=== PATIENT | female | born 1990 | race Caucasian/White ===

== ENCOUNTER 2025-07-14 11:39 | Emergency (ER) | payer BC ==
[2025-07-14] MEDS ORDERED: Nitroglycerin 0.4 MG Tab.SL SL PRN (12:01)
[2025-07-14 12:49] LABS: BASOPHILS ABSOLUTE AUTO 0.03 K/uL (0.00-0.20); BASOPHILS PERCENT AUTO 0.5 % (0.0-2.0); EOSINOPHILS ABSOLUTE AUTO 0.36 K/uL (0.00-0.50); EOSINOPHILS PERCENT AUTO 5.8 % (0.0-5.0); IMMATURE GRAN ABSOLUTE AUTO 0.00 10^3/uL (0.00-0.04); IMMATURE GRAN PERCENT AUTO 0.0 % (0.0-0.4); LYMPHOCYTES ABSOLUTE AUTO 2.02 K/uL (0.50-3.50); LYMPHOCYTES PERCENT AUTO 32.7 % (10.0-50.0); MONOCYTES ABSOLUTE AUTO 0.57 K/uL (0.00-1.00); MONOCYTES PERCENT AUTO 9.2 % (2.0-14.0); NEUTROPHILS ABSOLUTE AUTO 3.20 K/uL (1.40-7.00); NEUTROPHILS PERCENT AUTO 51.8 % (45.0-80.0); PLATELET COUNT,PLT 276 K/uL (150-350); RED BLOOD CELL COUNT 4.34 M/uL (3.77-5.09); RED CELL DISTRIBUTION WIDTH 12.9 % (11.2-14.1); WHITE BLOOD CELL COUNT,WBC 6.2 K/uL (4.0-10.2)
[2025-07-14 13:08] LABS: INR 1.0 (0.9-1.1); PTT,PARTIAL THROMBOPLSTIN TIME 30.1 SEC (23.8-34.4)
[2025-07-14 13:11] LABS: ALANINE AMINOTRANSFERASE,ALT 27 U/L (12-78); ASPARTATE AMNIOTRANSFERASE,AST 18 U/L (15-37); BILIRUBIN TOTAL 0.5 mg/dL (0.2-1.0); BLOOD UREA NITROGEN,BUN 15 mg/dL (7-18); CARBON DIOXIDE,CO2 27.0 mmol/L (21.0-32.0); CHLORIDE,CL 105 mmol/L (98-107); CREATININE 0.95 mg/dL (0.51-1.17); ESTIMATED GFR 81 mL/min (>=60); GLUCOSE RANDOM 83 mg/dL (70-99); POTASSIUM,K 4.2 mmol/L (3.5-5.1); PROTEIN TOTAL,TP 7.1 g/dL (6.4-8.2); SODIUM,NA 141 mmol/L (136-145)
[2025-07-14] MEDS: LORazepam 2 MG/ML SDV IVPUSH ONE (14:12)
[2025-07-14] MEDS: Ondansetron 4 MG/2 ML SDV IVPUSH ONE (14:22)
== END 2025-07-14 16:19 | disposition home or self-care (01) ==
LOC: LL.ED 11:39
DX: I10 Essential (primary) hypertension (principal); Z79.899 Other long term (current) drug therapy
CPT/HCPCS: 36415; 71045; 80053; 81025; 83735; 84484; 85025; 85610; 85730; 93005; 96374; 96375; 96376; 99285; A9270; J1920; J2060; J2405